=== PATIENT | male | born 1970 | race Caucasian/White ===

== ENCOUNTER 2019-10-30 22:03 | Outpatient (REF) | payer MEDICAID, SELFPAY ==
[2019-10-30 19:58] LABS: ALT 31 U/L (16-63); Anion Gap 11.6 mmol/L (3-11); BUN 23 mg/dL (7-18); CO2 29.4 mmol/L (21.0-32.0); CREATININE 1.15 mg/dL (0.70-1.30); Calcium 9.3 mg/dL (8.5-10.1); Chloride 102 mmol/L (98-107); Glucose 109 mg/dL (74-106); Sodium 143 mmol/L (136-145); Uric Acid 7.1 mg/dL (3.5-7.2)
[2019-10-30 20:02] LABS: HCT 39.6 % (40.0-50.0); HGB 13.7 g/dL (13.5-17.5); Mean Corp. HGB Concentration 34.6 g/dL (32.0-36.0); Mean Corpuscular Hemoglobin 29.3 pg (27.0-33.0); Mean Corpuscular Volume 84.6 fL (80-95); Mean Platelet Volume 12.2 fL (8.0-11.0); Platelet Count 264 x1000/uL (130-400); RBC 4.68 m/cumm (4.50-6.00); RBC Distribution Width 13.6 % (11.8-14.1); White Blood Cell Count 8.34 k/cumm (4.4-10.8)
[2019-10-30 20:09] LABS: LDL CHOLESTEROL 104 mg/dL (<100)
[2019-11-03 09:33] LABS: PSA, Screening 3.8 ng/mL (0.0-3.5)
== END 2019-10-30 22:23 ==
LOC: NCHCN 22:03
PROVIDERS: PCP Internal Medicine; Visit Provider Internal Medicine
DX: E87.6 Hypokalemia (principal); R60.9 Edema, unspecified; M10.9 Gout, unspecified; Z00.00 Encounter for general adult medical examination without abnormal findings; Z12.5 Encounter for screening for malignant neoplasm of prostate
CPT/HCPCS: 80048; 83721; 84153; 85027; 84460; 84550

== ENCOUNTER 2020-04-28 14:25 | Outpatient (REF) | payer MEDICAID, SELFPAY ==
[2020-04-28 21:30] LABS: CREATININE 1.15 mg/dL (0.70-1.30)
[2020-04-28 21:44] LABS: Potassium 2.9 mmol/L (3.5-5.1)
[2020-04-30 08:56] LABS: PSA, Diagnostic 4.2 ng/mL (0.0-3.5)
== END 2020-04-28 14:45 ==
LOC: NCHCN 14:25
PROVIDERS: PCP Internal Medicine; Visit Provider Internal Medicine
DX: E87.6 Hypokalemia (principal); R73.9 Hyperglycemia, unspecified; R97.20 Elevated prostate specific antigen [PSA]; N18.3 Chronic kidney disease, stage 3 (moderate)
CPT/HCPCS: 82565; 84132; 84153

== ENCOUNTER 2020-06-01 10:31 | Outpatient (REF) | payer MEDICAID, SELFPAY ==
[2020-06-01 19:20] LABS: Anion Gap 7.8 mmol/L (3-11); BUN 18 mg/dL (7-18); CO2 25.2 mmol/L (21.0-32.0); CREATININE 1.01 mg/dL (0.70-1.30); Calcium 9.7 mg/dL (8.5-10.1); Chloride 107 mmol/L (98-107); Glucose 95 mg/dL (74-106); Sodium 140 mmol/L (136-145)
== END 2020-06-01 10:51 ==
LOC: NCHCN 10:31
PROVIDERS: PCP Internal Medicine; Visit Provider Internal Medicine
DX: I10 Essential (primary) hypertension (principal)
CPT/HCPCS: 80048

== ENCOUNTER 2020-11-03 16:14 | Outpatient (REF) | payer MEDICAID, SELFPAY ==
[2020-11-03 20:28] LABS: HCT 41.6 % (40.0-50.0); HGB 14.2 g/dL (13.5-17.5); MCHC 34.1 % (32.0-36.0); MCV 85.1 fL (80-95); MPV 11.9 fL (8.0-11.0); Platelet Count 234 10^3/uL (130-400); RBC 4.89 10^6/uL (4.36-5.78); WBC 8.63 10^3/uL (4.4-10.8)
[2020-11-03 20:49] LABS: Anion Gap 10.1 mmol/L (3-11); BUN 21 mg/dL (7-18); CO2 24.9 mmol/L (21.0-32.0); CREATININE 1.36 mg/dL (0.70-1.30); Calcium 9.4 mg/dL (8.5-10.1); Chloride 103 mmol/L (98-107); Estimated GFR 55.03 (mL/min/1.73m2); Glucose 105 mg/dL (74-106); PHOSPHORUS 3.3 mg/dL (2.6-4.7); Potassium 3.8 mmol/L (3.5-5.1); Sodium 138 mmol/L (136-145); Uric Acid 4.9 mg/dL (3.5-7.2)
[2020-11-04 17:30] LABS: PSA, Diagnostic 4.8 ng/mL (0.0-3.5)
== END 2020-11-03 16:34 ==
LOC: NCHCN 16:14
PROVIDERS: PCP Internal Medicine; Visit Provider Internal Medicine
DX: R97.20 Elevated prostate specific antigen [PSA] (principal); N18.30 Chronic kidney disease, stage 3 unspecified
CPT/HCPCS: 80069; 85027; 84153; 84550

== ENCOUNTER 2021-06-15 16:17 | Outpatient (REF) | payer MEDICAID, SELFPAY ==
[2021-06-15 21:21] LABS: Anion Gap 11.2 mmol/L (3-11); BUN 17 mg/dL (7-18); CO2 25.8 mmol/L (21.0-32.0); CREATININE 1.2 mg/dL (0.70-1.30); Chloride 105 mmol/L (98-107); Glucose 101 mg/dL (74-106); Sodium 142 mmol/L (136-145)
[2021-06-16 18:10] LABS: PSA, Diagnostic 4.6 ng/mL (0.0-3.5)
== END 2021-06-15 16:18 | disposition home or self-care (01) ==
LOC: NCHCN 16:17
PROVIDERS: PCP Internal Medicine; Visit Provider Internal Medicine
DX: I10 Essential (primary) hypertension (principal); R97.20 Elevated prostate specific antigen [PSA]; G62.9 Polyneuropathy, unspecified
CPT/HCPCS: 80048; 84153

== ENCOUNTER 2022-09-11 15:47 | Outpatient (REF) | payer MEDICAID, SELFPAY ==
[2022-09-11 19:46] LABS: ALT 36 U/L (16-63); Creatine Kinase 378 U/L (39-308); Glucose 98 mg/dL (74-106); TSH 1.81 uIU/mL (0.36-3.74)
[2022-09-11 19:59] LABS: Calculated LDL 96 mg/dL (<100); Cholesterol 180 mg/dL (<200); HDL Cholesterol 41 mg/dL (40-60); Triglyceride 217 mg/dL (<150)
[2022-09-12 20:08] LABS: PSA, Diagnostic 5.5 ng/mL (<=3.5)
== END 2022-09-11 15:48 | disposition home or self-care (01) ==
LOC: NCHCN 15:47
PROVIDERS: PCP Internal Medicine; Visit Provider Internal Medicine
DX: I10 Essential (primary) hypertension (principal); E87.6 Hypokalemia; R97.20 Elevated prostate specific antigen [PSA]
CPT/HCPCS: 80061; 82550; 82947; 84153; 84443; 84460

== ENCOUNTER 2023-03-14 14:42 | Outpatient (REF) | payer MEDICAID, SELFPAY ==
--- OUTSIDE RECORDS SUMMARY | 2023-03-14 15:01 | XMS_ITS | Continuity of Care Document ---
Author Name Unknown Organization [facility] Address [address] [place] [address] Care Team Providers Care Bioinformatics Computer Scientist Name Role Phone Baldev Haji Primary Care Physician Encounter [id number] Date(s): 09/20/22 - 09/20/[address] [id number] Discharge Disposition: Home or Self Care Attending Physician: Baldev Ambrose MD Admitting Physician: Baldev Ambrose MD Referring Physician: Baldev Ambrose MD Social History Social History Type Response Tobacco Former tobacco user Tobacco Use:. Sex Male Patient Care team information Personnel Name: Baldev Haji MD Address: Address: [facility] [address] [place], [place] [address]
--- OUTSIDE RECORDS SUMMARY | 2023-03-14 15:01 | XMS_ITS | Continuity of Care Document ---
Author Name Unknown Organization [facility] Address [address] [place] [address] Care Team Providers Care Code And Test Clerk Name Role Phone au [facility] Primary Care Physician Encounter [facility] Date(s): 08/15/22 - 08/15/[address] [phone] [place] Encounter Diagnosis PVC's (premature ventricular contractions)(Discharge Diagnosis) - 08/15/22 Palpitation(Discharge Diagnosis) - 08/15/22 Discharge Disposition: Home or Self Care Attending Physician: Tanya Zavaleta MD Admitting Physician: Tanya Zavaleta MD Functional Status 08/15/22 Family Member Travel History No recent t ravel Recent Travel History No recent travel Other exposure to Infectious Disease Non e Results Laboratory List Name Date .Manual Differential (NCTY) 08/15/22 CBC w/ Diff 08/15/22 Comprehensive Metabolic Panel (CMP) 08/15 Magnesium Level 08/15/22 Troponin-I 08/15/22 Most recent to oldest [Reference Range]: 1 WBC [5.0-10.0 x10^3/mcL] 13.7 x10^3/mcL *HI* (08/15/22 8:25 PM) RBC [4.6-6.0 x10^6/mcL] 4.9 x10^6/mcL (08/15/22 8:25 PM) Segs Man [40-75 %] 39 % *LOW* (08/15/22 8:25 PM) Lymph Man [20-50 %] 50 % (08/15/22 8:25 PM) Chelan Man 7 % *NA* (08/15/22 8:25 PM) Eos Man 4 % *NA* (08/15/22 8:25 PM) BUN [7-18 mg/dL] 21 mg/dL *HI* (08/15/22 8:25 PM) Glucose Level [74-106 mg/dL] 103 mg/dL (08/15/22 8:25 PM) Potassium Level [3.5-5.1 mmol/L] 3.6 mmo l/L (08/15/22 825 PM) MCV [80.0-96.0] 84.8 (08/15/22:25 PM) RBC Morph Normal (08/15/22 PM) AST [15-37 unit/L] 19 unit/L (08/15/2225 PM) ALT [16-63 unit/L] 26 unit/L (08/15/2225 PM) MCHC [31.0-35.0 g/dL] 34.8 g/dL (08/15/2225 PM) Troponin-I [0.0-76.2 pg/mL] 6.2 pg/mL (08/15/2225 PM) Sodium Level [136-145 mmol/L] 138 mmol/L (08/15/22 8:25 PM) Hct [41.0-51.0 %] 41.4 % (08/15/2225 PM) Calcium Level [8.5-10.1 mg/dL] 9.2 mg/dL (08/15/22:25 PM) Albumin Level [3.4-5.0 g/dL] 4.1 g/dL (08/15/2225 PM) Protein Total [6.4-8.2 g/dL] 8.1 g/dL (08/15/22 8:25 PM) MCH [26.0-32.0 pg] 29.5 pg (08/15/22:25 PM) Magnesium Level [1.8-2.4 mg/dL] 2.1 mg/d L (08/15/22 825 PM) Bilirubin Total [0.2-1.0 mg/dL] 0.4 mg/d L (08/15/22 8:25 PM) Hgb [14.0-18.0 g/dL] 14.4 g/dL (08/15/22 8:25 PM) Alk Phos [46-146 unit/L] 84 unit/L (08/15/22 8:25 PM) Band Man [0-5 %] 0 % (08/15/22 8:25 PM) Platelets [130-450 x10^3/mcL] 239 x10^3/ mcL (08/15/22 8:25 PM) CO2 [21-32 mmol/L] 30 mmol/L (08/15/22 PM) eGFR Non-AA [>=60] 65 (08/15/22 8:25 PM) eGFR AA [>=60] 65 (08/15/22 8: PM) Chloride Level [98-107 mmol/L] 101 mmol/ L (08/15/22: PM) RDW-CV [11.5-17.0 %] 13.2 % (08/15/22 8:25 PM) Abs Neut Man 5.3 x10^3/mcL *NA* (08/15/22 PM) Creatinine Level [0.70-1.30 mg/dL] 1.31 mg/dL *HI* (08/15/22 8:25 PM) Baso Man [0-1 %] 0 % (08/15/22 8: PM) Vital Signs Most recent to oldest [Reference Range]: 1 Temperature Temporal Artery [36-38 Deg C ] 36.5 Deg C (08/15/22 8:06 PM) Peripheral Pulse Rate [60-100 bpm] 100 b pm (08/15/22 8: PM) Respiratory Rate [12-24 br/min] 18 br/mi n (08/15/22 8:06 PM) Blood Pressure [90-140/60-90 mmHg] 134/8 9mmHg (08/15/22 8:06 PM) Weight Dosing 100.00 kg (08/15/22 8:46 PM) Weight Estimated 100.00 kg (08/15/22 8:06 PM) Height/Length Dosing 170.000 cm (08/15/22 8:46 PM) Height/Length Estimated 170.000 cm (08/15/22 8:06 PM) Social History Social History Type Response Tobacco Former tobacco user Tobacco Use:. Sex Male Hospital Discharge Instructions Patient Education 08/15/2022 20:25:14 Premature Ventricular Contraction Premature Ventricular Contraction A premature ventricular contraction (PVC) is a common kind of irregular heartbeat (arrhythmia). These contractions are extra heartbeats that start in the ventricles of the heart and occur too early in the normal sequence. During the PVC, the heart's normal electrical pathway is not used, so the beat is shorter and less effective. In most cases, these contractions come and go and do not require treatment. What are the causes? Common causes of the condition include: ??? Smoking. ??? Drinking alcohol. ??? Certain medicines. ??? Some illegal drugs. ??? Stress. ??? Caffeine. Certain medical conditions can also cause PVCs: ??? Heart failure. ??? Heart attack, or coronary artery disease. ??? Heart valve problems. ??? Changes in minerals in the blood (electrolytes). ??? Low blood oxygen levels or high carbon dioxide levels. In many cases, the cause of this condition is not known. What are the signs or symptoms? The main symptom of this condition is fast or skipped heartbeats (palpitations). Other symptoms include: ??? Chest pain. ??? Shortness of breath. ??? Feeling tired. ??? Dizziness. ??? Difficulty exercising. In some cases, there are no symptoms. How is this diagnosed? This condition may be diagnosed based on: ??? Your medical history. ??? A physical exam. During the exam, the health care provider will check for irregular heartbeats. ??? Tests, such as: ??? An ECG (electrocardiogram) to monitor the electrical activity of your heart. ??? An ambulatory threat monitoring analyst. This device records your heartbeats for 24 hours or more. ??? Stress tests to see how exercise affects your heart rhythm and blood supply. ??? An echocardiogram. This test uses sound waves (ultrasound) to produce an image of your heart. ??? An electrophysiology study (EPS). This test checks for electrical problems in your heart. How is this treated? Treatment for this condition depends on any underlying conditions, the type of PVCs that you are having, and how much the symptoms are interfering with your daily life. Possible treatments include: ??? Avoiding things that cause premature contractions (triggers). These include caffeine and alcohol. ??? Taking medicines if symptoms are severe or if the extra heartbeats are frequent. ??? Getting treatment for underlying conditions that cause PVCs. ??? Having an implantable cardioverter defibrillator (ICD), if you are at risk for a serious arrhythmia. The ICD is a small device that is inserted into your chest to monitor your heartbeat. When it senses an irregular heartbeat, it sends a shock to bring the heartbeat back to normal. ??? Having a procedure to destroy the portion of the heart tissue that sends out abnormal signals (catheter ablation). In some cases, no treatment is required. Follow these instructions at home: Lifestyle ??? Do not use any products that contain nicotine or tobacco, such as cigarettes, e-cigarettes, andchewing tobacco. If you need help quitting, ask your health care provider. ??? Do not use illegal drugs. ??? Exercise regularly. Ask your health care provider what type of exercise is safe for you. ??? Try to get at least 7???9 hours of sleep each night, or as much as recommended by your health care provider. ??? Find healthy ways to manage stress. Avoid stressful situations when possible. Alcohol use ??? Do not drink alcohol if: ??? Your health care provider tells you not to drink. ??? You are , may be , or are planning to become . ??? Alcohol triggers your episodes. ??? If you drink alcohol: ??? Limit how much you use to: ??? 0???1 drink a day for women. ??? 0???2 drinks a day for men. ??? Be aware of how much alcohol is in your drink. In the [place] one drink equals one 12 oz bottle of beer (355 mL), one 5 oz glass of wine (148 mL), or one 1?? oz glass of hard liquor (44 mL). General instructions ??? Take ukhg-tff-cvsdoqe and prescription medicines only as told by your health care provider. ??? If caffeine triggers episodes of PVC, do not eat, drink, or use anything with caffeine in it. ??? Keep all follow-up visits as told by your health care provider. This is important. Contact a health care provider if you: ??? Feel palpitations. Get help right away if you: ??? Have chest pain. ??? Have shortness of breath. ??? Have sweating for no reason. ??? Have nausea and vomiting. ??? Become light-headed or you faint. Summary ??? A premature ventricular contraction (PVC) is a common kind of irregular heartbeat (arrhythmia). ??? In most cases, these contractions come and go and do not require treatment. ??? You may need to wear an ambulatory threat monitoring analyst. This records your heartbeats for 24 hours or more. ??? Treatment depends on any underlying conditions, the type of PVCs that you are having, and how much the symptoms are interfering with your daily life. This information is not intended to replace advice given to you by your health care provider. Make sure you discuss any questions you have with your health care provider. Document Revised: 06/19/2019 Document Reviewed: 06/19/2019 [employer] Patient Education ?? 2021 [employer]. 08/15/2022 20:25:12 Palpitations Palpitations Palpitations are feelings that your heartbeat is irregular or is faster than normal. It may feel like your heart is fluttering or skipping a beat. Palpitations are usually not a serious problem. Theymay be caused by many things, including smoking, caffeine, alcohol, stress, and certain medicines or drugs. Most causes of palpitations are not serious. However, some palpitations can be a sign of a serious problem. You may need further tests to rule out serious medical problems. Follow these instructions at home: Pay attention to any changes in your condition. Take these actions to help manage your symptoms: Eating and drinking ??? Avoid foods and drinks that may cause palpitations. These may include: ??? Caffeinated coffee, tea, soft drinks, diet pills, and energy drinks. ??? Chocolate. ??? Alcohol. Lifestyle ??? Take steps to reduce your stress and anxiety. Things that can help you relax include: ??? Yoga. ??? Mind-body activities, such as deep breathing, meditation, or using words and images to create positive thoughts (guided imagery). ??? Physical activity, such as swimming, jogging, or walking. Tell your health care provider if your palpitations increase with activity. If you have chest pain or shortness of breath with activity, do not continue the activity until you are seen by your health care provider. ??? Biofeedback. This is a method that helps you learn to use your mind to control things in your body, such as your heartbeat. ??? Do not use drugs, including cocaine or ecstasy. Do not use marijuana. ??? Get plenty of rest and sleep. Keep a regular bed time. General instructions ??? Take eptj-zuo-qsdzbov and prescription medicines only as told by your health care provider. ??? Do not use any products that contain nicotine or tobacco, such as cigarettes and e-cigarettes. If you need help quitting, ask your health care provider. ??? Keep all follow-up visits as told by your health care provider. This is important. These may include visits for further testing if palpitations do not go away or get worse. Contact a health care provider if you: ??? Continue to have a fast or irregular heartbeat after 24 hours. ??? Notice that your palpitations occur more often. Get help right away if you: ??? Have chest pain or shortness of breath. ??? Have a severe headache. ??? Feel dizzy or you faint. Summary ??? Palpitations are feelings that your heartbeat is irregular or is faster than normal. It may feel like your heart is fluttering or skipping a beat. ??? Palpitations may be caused by many things, including smoking, caffeine, alcohol, stress, certain medicines, and drugs. ??? Although most causes of palpitations are not serious, some causes can be a sign of a serious medical problem. ??? Get help right away if you faint or have chest pain, shortness of breath, a severe headache, ordizziness. This information is not intended to replace advice given to you by your health care provider. Make sure you discuss any questions you have with your health care provider. Document Revised: 10/30/2018 Document Reviewed: 11/06/2018 [employer] Patient Education ?? 2021 [employer] Follow Up Care 08/15/2022 20:06:08 With:Simin [facility] Address: [address] [address]- When:1 month Physician Emergency department Note * Neeraj Castillo MD: PERFORM Event Display: ED Note Physician Authored Date: [id number] GEMA ESPINOSA :1970 Age:52 years Sex:Male Visit Date:08/15/2022 Primary Care Physician: Simin WAKEFIELD, Baldev Aggarwal MD Basic Information Time Seen: Neeraj Castillo MD / 08/15/2022 20:14 Chief Complaint Pt. presents with heart, feels like it goes a few beats and stops, goes a few beats and stops...aymptomes since 1600. Pt. indicates that several weeks ago he had some rapid HR noted on home pulseOx with concominant CP. No care saught at that time. History Of Present Illness: 52-year-old male past medical history CKD, CVA, hypertension??presents with??palpitations. ??Occurred throughout the day today.?? Had some chest discomfort 3 weeks ago but has not had anything since that time. ??Noted that he took a pulse and was having skipped beat. ??Never had this before. ??No chest pain??today or within the last couple weeks no shortness of breath no nausea vomiting??cough cold congestion fevers abdominal pain or any other symptoms. Review of Systems: Constitutional:?No??fevers,?No??chills,?No??sweats Eye:?No??recent visual problems ENT:?No??ear pain,?No??nasal congestion,?No??sore throat Respiratory:?No??shortness of breath,?No??cough Cardiovascular:?No??Chest pain,?Positive for??palpitations,?No??syncope Gastrointestinal:?Nonausea,?No??vomiting,?No??diarrhea Genitourinary:?No??hematuria Franc/Lymph:?No??bruising tendency,?No??swollen lymph glands Endocrine:?No??excessive thirst,??No??excessive hunger Musculoskeletal:??No??back pain,??No??neck pain,??No??joint pain,??No??muscle pain,??No??decreased range of motion Integumentary:?No??rash,?No??pruritus,?No??abrasions Neurologic: Alert & oriented X 4 Psychiatric:?No??anxiety,?No??depression Physical Exam Vitals & Measurements T:??36.5?C ??(Temporal Artery)?? HR:??100??(Peripheral)?? RR:??18?? BP:??134/89?? SpO2:??98%?? HT:??170.000??cm?? WT:??100.00??kg??(Estimated)?? General: Alert and oriented, well nourished,?No??acute distress Eye: PERRL, EOMI,?Normal??conjunctiva HENT: Normocephalic, clear tympanic membranes,?Normal?? hearing, moist oral mucosa,?No??scleral icterus,?No??sinus tenderness Neck: Supple, non-tender,?No??carotid bruits,?No??JVD,?No??lymphadenopathy Lungs: Clear to auscultation and percussion,?Non-labored?? respiration Heart:?Normal?? rate,?Regular??rhythm,?No??murmur,?No??gallop,?No??edema Abdomen: Soft, non-tender, non-distended,?Normal?? bowel sounds,?No??masses Musculoskeletal:?Normal?? range of motion and strength,?No??tenderness,?No??swelling Skin: Skin is warm, dry and pink,?No??rashes,?No??lesions Neurologic: Awake, alert and oriented X4, CN II-XII intact Psychiatric: Cooperative, appropriate mood and affect Medical Decision Makin-year-old male presents with??palpitations.?? 36.5, 134/89,??heart rate 85, respiratory 18, 100% on room air. ??Patient clinically in no acute distress is asymptomatic in the ER. ?? EKG??sinus rate 93 normal axis and intervals no ST segment elevations or depressions, PVC noted. ?? Labs including troponin??and electrolytes are normal??with the exception of minimal elevation ofcreatinine at 1.3??and nonspecific leukocytosis of 13, both of which are not contributing to??current??presentation. ??Patient was on the threat monitoring analyst in the ER was noted to have PVCs??anywhere between??every 4 beats to every 20 beats.?? This is most likely what patient was experiencing and thathe did not feel a pulse??after every couple of beats at home.?? Discharged in stable condition withreturn precautions to the ER and primary care follow-up. Procedure No Qualifying Data Assessment/Plan 1.??PVC's (premature ventricular contractions)??I49.3 Ordered: Discharge Patient, 08/15/22 21:24:00 EST, Home Independently, Constant Indicator ?? 2.??Palpitation??R00.2 Ordered: Discharge Patient, 08/15/22 21:24:00 EST, Home Independently, Constant Indicator ?? Patient Education Premature Ventricular Contraction Palpitations Follow Up With When Contact Information [facility], Baldev Aggarwal MD Within [address] [address]- Additional Instructions: Problem List/Past Medical History Ongoing No qualifying data Historical No qualifying data Allergies No active allergies Social History Electronic Cigarette/Vaping Electronic Cigarette Use: Never. Tobacco Former tobacco user Tobacco Use:. Lab Results CBC and Differential?? LATEST RESULTS?? WBC?? 08/15/22 20:25?? 13.7 ??High?? RBC?? 08/15/22 20:25?? 4.9?? Hgb?? 08/15/22 20:25?? 14.4?? Hct?? 08/15/22 20:25?? 41.4?? MCV?? 08/15/22 20:25?? 84.8?? MCH?? 08/15/22 20:25?? 29.5?? MCHC?? 08/15/22 20:25?? 34.8?? RDW-CV?? 08/15/22 20:25?? 13.2?? Platelets?? 08/15/22 20:25?? 239?? Segs Man?? 08/15/22 20:25?? 39 ??Low?? Lymph Man?? 08/15/22 20:25?? 50?? Chelan Man?? 08/15/22 20:25?? 7?? Eos Man?? 08/15/22 20:25?? 4?? Baso Man?? 08/15/22 20:25?? 0?? Band Man?? 08/15/22 20:25?? 0?? Abs Neut Man?? 08/15/22 20:25?? 5.3?? RBC Morph?? 08/15/22 20:25?? Normal? Routine Chemistry?? LATEST RESULTS?? Sodium Level?? 08/15/22 20:25?? 138?? Potassium Level?? 08/15/22 20:25?? 3.6?? Chloride Level?? 08/15/22 20:25?? 101?? CO2?? 08/15/22 20:25?? 30?? Alk Phos?? 08/15/22 20:25?? 84?? AST?? 08/15/22 20:25?? 19?? ALT?? 08/15/22 20:25?? 26?? BUN?? 08/15/22 20:25?? 21 ??High?? Glucose Level?? 08/15/22 20:25?? 103?? Creatinine Level?? 08/15/22 20:25?? 1.31 ??High?? eGFR AA?? 08/15/22 20:25?? 65?? eGFR Non-AA?? 08/15/22 20:25?? 65?? Calcium Level?? 08/15/22 20:25?? 9.2?? Protein Total?? 08/15/22 20:25?? 8.1?? Albumin Level?? 08/15/22 20:25?? 4.1?? Bilirubin Total?? 08/15/22 20:25?? 0.4?? Magnesium Level?? 08/15/22 20:25?? 2.1? Cardiac Isoenzymes?? LATEST RESULTS?? Troponin-I?? 08/15/22 20:25?? 6.2? Electronically Signed on 08/15/22 09:25 PM Neeraj Castillo MD Emergency department Discharge instructions * Neeraj Castillo MD: PERFORM Event Display: ED Discharge Information Authored Date: [id number] GEMA ESPINOSA :1970 Age:52 years Sex:Male Visit Date:08/15/2022 Primary Care Physician: Baldev Haji MD Discharge Instructions We would like to thank you for allowing us to assist you with your healthcare needs. The following includes patient education materials and information regarding your injury/illness. Diagnosis from Today's Visit PVC's (premature ventricular contractions) Palpitation Discharge Vitals Temperature??(Temporal Artery) 97.7 ??F (36.5 ??C) Heart Rate??(Peripheral) 100 Respiratory Rate?? 18 Blood Pressure?? 134/89?? Height?? 66.93 in (170.000 cm) Weight??(Estimated) 220.50 lb (100.00 kg) Allergies No active allergies What to Do Next You Need to Schedule the Following Appointments Follow Up with??Baldev Haji MD When:??Within 1 month Where: [address] [address]- You were treated today on an emergency basis; it may be patel to contact your primary care provider to notify them of your visit today. You may have been referred to your regular doctor or a specialist, please follow up as instructed. If your condition worsens or you can't get in to see the doctor, contact the Emergency Department. Education Materials Premature Ventricular Contraction A premature ventricular contraction (PVC) is a common kind of irregular heartbeat (arrhythmia). These contractions are extra heartbeats that start in the ventricles of the heart and occur too early in the normal sequence. During the PVC, the heart's normal electrical pathway is not used, so the beat is shorter and less effective. In most cases, these contractions come and go and do not require treatment. What are the causes? Common causes of the condition include: ? Smoking. ? Drinking alcohol. ? Certain medicines. ? Some illegal drugs. ? Stress. ? Caffeine. Certain medical conditions can also cause PVCs: ? Heart failure. ? Heart attack, or coronary artery disease. ? Heart valve problems. ? Changes in minerals in the blood (electrolytes). ? Low blood oxygen levels or high carbon dioxide levels. In many cases, the cause of this condition is not known. What are the signs or symptoms? The main symptom of this condition is fast or skipped heartbeats (palpitations). Other symptoms include: ? Chest pain. ? Shortness of breath. ? Feeling tired. ? Dizziness. ? Difficulty exercising. In some cases, there are no symptoms. How is this diagnosed? This condition may be diagnosed based on: ? Your medical history. ? A physical exam. During the exam, the health care provider will check for irregular heartbeats. ? Tests, such as: ? An ECG (electrocardiogram) to monitor the electrical activity of your heart. ? An ambulatory threat monitoring analyst. This device records your heartbeats for 24 hours or more. ? Stress tests to see how exercise affects your heart rhythm and blood supply. ? An echocardiogram. This test uses sound waves (ultrasound) to produce an image of your heart. ? An electrophysiology study (EPS). This test checks for electrical problems in your heart. How is this treated? Treatment for this condition depends on any underlying conditions, the type of PVCs that you are having, and how much the symptoms are interfering with your daily life. Possible treatments include: ? Avoiding things that cause premature contractions (triggers). These include caffeine and alcohol. ? Taking medicines if symptoms are severe or if the extra heartbeats are frequent. ? Getting treatment for underlying conditions that cause PVCs. ? Having an implantable cardioverter defibrillator (ICD), if you are at risk for a serious arrhythmia. The ICD is a small device that is inserted into your chest to monitor your heartbeat. When it senses an irregular heartbeat, it sends a shock to bring the heartbeat back to normal. ? Having a procedure to destroy the portion of the heart tissue that sends out abnormal signals (catheter ablation). In some cases, no treatment is required. Follow these instructions at home: Lifestyle ? Do not use any products that contain nicotine or tobacco, such as cigarettes, e- cigarettes, and chewing tobacco. If you need help quitting, ask your health care provider. ? Do not use illegal drugs. ? Exercise regularly. Ask your health care provider what type of exercise is safe for you. ? Try to get at least 7???9 hours of sleep each night, or as much as recommended by your health care provider. ? Find healthy ways to manage stress. Avoid stressful situations when possible. Alcohol use ? Do not drink alcohol if: ? Your health care provider tells you not to drink. ? You are , may be , or are planning to become . ? Alcohol triggers your episodes. ? If you drink alcohol: ? Limit how much you use to: ? 0???1 drink a day for women. ? 0???2 drinks a day for men. ? Be aware of how much alcohol is in your drink. In the [place] one drink equals one 12 oz bottle of beer (355 mL), one 5 oz glass of wine (148 mL), or one 1?? oz glass of hard liquor (44 mL). General instructions ? Take ktfh-ziw-qeeupxn and prescription medicines only as told by your health care provider. ? If caffeine triggers episodes of PVC, do not eat, drink, or use anything with caffeine in it. ? Keep all follow-up visits as told by your health care provider. This is important. Contact a health care provider if you: ? Feel palpitations. Get help right away if you: ? Have chest pain. ? Have shortness of breath. ? Have sweating for no reason. ? Have nausea and vomiting. ? Become light-headed or you faint. Summary ? A premature ventricular contraction (PVC) is a common kind of irregular heartbeat (arrhythmia). ? In most cases, these contractions come and go and do not require treatment. ? You may need to wear an ambulatory threat monitoring analyst. This records your heartbeats for 24 hours or more. ? Treatment depends on any underlying conditions, the type of PVCs that you are having, and how much the symptoms are interfering with your daily life. This information is not intended to replace advice given to you by your health care provider. Make sure you discuss any questions you have with your health care provider. Document Revised: 06/19/2019 Document Reviewed: 06/19/2019 [employer] Patient Education ?? 2021 [employer] [employer] Palpitations Palpitations are feelings that your heartbeat is irregular or is faster than normal. It may feel like your heart is fluttering or skipping a beat. Palpitations are usually not a serious problem. Theymay be caused by many things, including smoking, caffeine, alcohol, stress, and certain medicines or drugs. Most causes of palpitations are not serious. However, some palpitations can be a sign of a serious problem. You may need further tests to rule out serious medical problems. Follow these instructions at home: Pay attention to any changes in your condition. Take these actions to help manage your symptoms: Eating and drinking ? Avoid foods and drinks that may cause palpitations. These may include: ? Caffeinated coffee, tea, soft drinks, diet pills, and energy drinks. ? Chocolate. ? Alcohol. Lifestyle ? Take steps to reduce your stress and anxiety. Things that can help you relax include: ? Yoga. ? Mind-body activities, such as deep breathing, meditation, or using words and images to create positive thoughts (guided imagery). ? Physical activity, such as swimming, jogging, or walking. Tell your health care provider if your palpitations increase with activity. If you have chest pain or shortness of breath with activity, do not continue the activity until you are seen by your health care provider. ? Biofeedback. This is a method that helps you learn to use your mind to control things in your body,such as your heartbeat. ? Do not use drugs, including cocaine or ecstasy. Do not use marijuana. ? Get plenty of rest and sleep. Keep a regular bed time. General instructions ? Take [id number] and prescription medicines only as told by your health care provider. ? Do not use any products that contain nicotine or tobacco, such as cigarettes and e-cigarettes. If you need help quitting, ask your health care provider. ? Keep all follow-up visits as told by your health care provider. This is important. These may include visits for further testing if palpitations do not go away or get worse. Contact a health care provider if you: ? Continue to have a fast or irregular heartbeat after 24 hours. ? Notice that your palpitations occur more often. Get help right away if you: ? Have chest pain or shortness of breath. ? Have a severe headache. ? Feel dizzy or you faint. Summary ? Palpitations are feelings that your heartbeat is irregular or is faster than normal. It may feel like your heart is fluttering or skipping a beat. ? Palpitations may be caused by many things, including smoking, caffeine, alcohol, stress, certain medicines, and drugs. ? Although most causes of palpitations are not serious, some causes can be a sign of a serious medical problem. ? Get help right away if you faint or have chest pain, shortness of breath, a severe headache, or dizziness. This information is not intended to replace advice given to you by your health care provider. Make sure you discuss any questions you have with your health care provider. Document Revised: 10/30/2018 Document Reviewed: 11/06/2018 [employer] Patient Education ?? 2021 [employer] Tests Performed Lab Test Name Test Result Date/Time WBC 13.7 x10^3/mcL 08/15/2022 20:25 EST RBC 4.9 x10^6/mcL 08/15/2022 20:25 EST Hgb 14.4 g/dL 08/15/2022 20:25 EST Hct 41.4 % 08/15/2022 20:25 EST MCV 84.8 08/15/2022 20:25 EST MCH 29.5 pg 08/15/2022 20:25 EST MCHC 34.8 g/dL 08/15/2022 20:25 EST RDW-CV 13.2 % 08/15/2022 20:25 EST Platelets 239 x10^3/mcL 08/15/2022 20:25 EST Segs Man 39 % 08/15/2022 20:25 EST Lymph Man 50 % 08/15/2022 20:25 EST [place] Man 7 % 08/15/2022 20:25 EST Eos Man 4 % 08/15/2022 20:25 EST Baso Man 0 % 08/15/2022 20:25 EST Band Man 0 % 08/15/2022 20:25 EST Abs Neut Man 5.3 x10^3/mcL 08/15/2022 20:25 EST RBC Morph Normal 08/15/2022 20:25 EST Sodium Level 138 mmol/L 08/15/2022 20:25 EST Potassium Level 3.6 mmol/L 08/15/2022 20:25 EST Chloride Level 101 mmol/L 08/15/2022 20:25 EST CO2 30 mmol/L 08/15/2022 20:25 EST Alk Phos 84 unit/L 08/15/2022 20:25 EST AST 19 unit/L 08/15/2022 20:25 EST ALT 26 unit/L 08/15/2022 20:25 EST BUN 21 mg/dL 08/15/2022 20:25 EST Glucose Level 103 mg/dL 08/15/2022 20:25 EST Creatinine Level 1.31 mg/dL 08/15/2022 20:25 EST eGFR AA 65 08/15/2022 20:25 EST eGFR Non-AA 65 08/15/2022 20:25 EST Calcium Level 9.2 mg/dL 08/15/2022 20:25 EST Protein Total 8.1 g/dL 08/15/2022 20:25 EST Albumin Level 4.1 g/dL 08/15/2022 20:25 EST Bilirubin Total 0.4 mg/dL 08/15/2022 20:25 EST Magnesium Level 2.1 mg/dL 08/15/2022 20:25 EST Troponin-I 6.2 pg/mL 08/15/2022 20:25 EST Patient/Customer Success Advocate Signature Patient Name:GEMA ESPINOSA I have received this information and my questions have been answered. Patient/Customer Success Advocate Name: Patient/Customer Success Advocate Signature: Relationship to Patient: Witness Name/Signature: Date: Electronically Signed on: 08/15/2022 21:25 ESTSigned by:[facility] Emergency department Note * Delicia Triplett: PERFORM Event Display: ED Notes Authored Date: [id number] Patient Care team information Care Team Personnel Name: Baldev Haji MD Position: Physician Member Role: Primary Care Physician Address: Address: [address] [id number] Name: Neeraj Castillo MD Position: Physician Member Role: ED Physician Address: Address: [facility] [address] [place] [id number]
[2023-03-14 20:18] LABS: ALT 33 U/L (16-63); Anion Gap 7.1 mmol/L (3-11); BUN 17 mg/dL (7-18); CO2 29.9 mmol/L (21.0-32.0); CREATININE 1.2 mg/dL (0.70-1.30); Calcium 9.4 mg/dL (8.5-10.1); Calculated LDL 73 mg/dL (<100); Chloride 102 mmol/L (98-107); Cholesterol 165 mg/dL (<200); Estimated GFR 71.86 (mL/min/1.73m2); Glucose 95 mg/dL (74-106); HDL Cholesterol 38 mg/dL (40-60); Potassium 3.5 mmol/L (3.5-5.1); Sodium 139 mmol/L (136-145); Triglyceride 272 mg/dL (<150)
[2023-03-14 20:38] LABS: Creatine Kinase 299 U/L (39-308)
== END 2023-03-14 14:43 | disposition home or self-care (01) ==
LOC: NCHCN 14:42
PROVIDERS: PCP Internal Medicine; Visit Provider Internal Medicine
DX: I10 Essential (primary) hypertension (principal); E78.5 Hyperlipidemia, unspecified
CPT/HCPCS: 80048; 80061; 82550; 84460

== ENCOUNTER 2024-03-13 21:45 | Outpatient (REF) | payer MEDICAID, SELFPAY ==
[2024-03-13 19:18] LABS: ALT 29 U/L (16-63); Anion Gap 11.8 mmol/L (3-11); BUN 18 mg/dL (7-18); CO2 26.2 mmol/L (21.0-32.0); CREATININE 1.2 mg/dL (0.70-1.30); Calcium 9.6 mg/dL (8.5-10.1); Calculated LDL 96 mg/dL (<100); Chloride 103 mmol/L (98-107); Cholesterol 164 mg/dL (<200); Estimated GFR 71.42 (mL/min/1.73m2); Glucose 93 mg/dL (74-106); HDL Cholesterol 45 mg/dL (40-60); Potassium 3.9 mmol/L (3.5-5.1); Sodium 141 mmol/L (136-145); Triglyceride 118 mg/dL (<150)
[2024-03-13 19:54] LABS: Creatine Kinase 215 U/L (39-308); Uric Acid 6.2 mg/dL (3.5-7.2)
[2024-03-14 09:06] LABS: NT-proBNP 40 pg/mL (<300)
== END 2024-03-13 21:46 | disposition home or self-care (01) ==
LOC: NCHCN 21:45
PROVIDERS: PCP Internal Medicine; Visit Provider Internal Medicine
DX: I10 Essential (primary) hypertension (principal); E78.5 Hyperlipidemia, unspecified
CPT/HCPCS: 80048; 80061; 82550; 83880; 84460; 84550

== ENCOUNTER 2024-07-03 17:45 | Outpatient (REF) | payer MEDICAID, SELFPAY ==
[2024-07-04 18:01] LABS: PSA, Screening <0.1 ng/mL (<=3.5)
== END 2024-07-03 17:46 | disposition home or self-care (01) ==
LOC: NCHCN 17:45
PROVIDERS: PCP Internal Medicine; Visit Provider Internal Medicine
DX: Z12.5 Encounter for screening for malignant neoplasm of prostate (principal)
CPT/HCPCS: 84153

== ENCOUNTER 2025-02-12 17:37 | Outpatient (REF) | payer MEDICAID, SELFPAY ==
[2025-02-12 19:36] LABS: HCT 39.2 % (40.0-50.0); MCH 28.6 pg (27.0-33.0); MCHC 33.2 % (32.0-36.0); MCV 86 fL (80-95); MPV 11.6 fL (8.0-11.0); Platelet Count 253 10^3/uL (130-400); RBC 4.54 10^6/uL (4.36-5.78); RDW 13.9 % (11.8-14.1); WBC 17.02 10^3/uL (4.4-10.8)
[2025-02-12 19:55] LABS: Anion Gap 7.8 mmol/L (3-11); BUN 15 mg/dL (7-18); CO2 28.2 mmol/L (21.0-32.0); CREATININE 1.2 mg/dL (0.70-1.30); Calcium 9.1 mg/dL (8.5-10.1); Calculated LDL 71 mg/dL (<100); Chloride 106 mmol/L (98-107); Cholesterol 163 mg/dL (<200); Estimated GFR 70.98 (mL/min/1.73m2); Glucose 133 mg/dL (74-106); HDL Cholesterol 35 mg/dL (>or=40); Potassium 3.8 mmol/L (3.5-5.1); Sodium 142 mmol/L (136-145); Triglyceride 287 mg/dL (<150)
[2025-02-12 21:03] LABS: Uric Acid 5.8 mg/dL (3.5-7.2)
[2025-02-13 08:02] LABS: Abs Immature Grans 0.05 10^3/uL (0.0-0.06); Absolute Basophil Count 0.07 10^3/uL (0.0-0.2); Absolute Eosinophil Count 0.31 10^3/uL (0.0-0.7); Absolute Lymphocyte Count 11.17 10^3/uL (1.2-3.4); Absolute Neutrophil Count 4.88 10^3/uL (1.2-6.7); Basophils % 0.4 %; Eosinophils % 1.8 %; Immature Grans % 0.3 %; Lymphocytes % 65.4 %; Monocytes % 3.5 %; Neutrophils % 28.6 %
[2025-02-13 08:09] LABS: Diff Comment Agrees w/ Instrument; RBC Morphology Normal
== END 2025-02-12 17:38 | disposition home or self-care (01) ==
LOC: NCHCN 17:37
PROVIDERS: PCP Internal Medicine; Visit Provider Internal Medicine
DX: I10 Essential (primary) hypertension (principal); M10.9 Gout, unspecified; E78.5 Hyperlipidemia, unspecified; D72.829 Elevated white blood cell count, unspecified
CPT/HCPCS: 80048; 80061; 85027; 84550; 85007